=== PATIENT | female | born 2000 | race Caucasian/White ===

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

== ENCOUNTER 2019-04-06 22:59 | Emergency (ER) | payer SELFPAY ==
[~2019-04-06] VITALS: Ht 152.4 cm; Wt 54.9 kg
--- NOTE | 2019-04-06 23:30 | PHYS DOC ---
Past Medical History Past Medical History: Anxiety, Depression Past Surgical History: No Surgical History Alcohol Use: None Drug Use: Marijuana, Methamphetamine Adult General Chief Complaint Chief Complaint: SUBSTANCE ABUSE HPI HPI Patient is a 18 year old female presented ER today for evaluation of abdominal pain, nausea vomiting, and diarrhea started today. Patient says she might be , her last menstrual period was 2 months ago. Patient denies any fever. She denies any vaginal bleeding or any pelvic pain at this time. Patient denies suicidal ideation or homicidal ideation. Review of Systems Review of Systems Constitutional: Denies fever or chills [] Eyes: Denies change in visual acuity, redness, or eye pain [] HENT: Denies nasal congestion or sore throat [] Respiratory: Denies cough or shortness of breath [] Cardiovascular: No additional information not addressed in HPI [] GI: Positive for abdominal pain, nausea, vomiting, NO bloody stools or diarrhea [] : Denies dysuria or hematuria [] Musculoskeletal: Denies back pain or joint pain [] Integument: Denies rash or skin lesions [] Neurologic: Denies headache, focal weakness or sensory changes [] Endocrine: Denies polyuria or polydipsia [] All other systems were reviewed and found to be within normal limits, except as documented in this note. Current Medications Current Medications Current Medications Medications (Trade) Dose Ordered Sig/Haley Start Time Stop Time Status Last Admin Dose Admin Info (CONTRAST GIVEN -- Rx MONITORING) 1 each PRN DAILY PRN 04/07/19 00:15 04/09/19 00:14 Iohexol (Omnipaque 300 Mg/ml) 75 ml 1X ONCE 04/07/19 00:30 04/07/19 00:31 DC 04/07/19 00:45 75 ML Ketorolac Tromethamine (Toradol 30mg Vial) 30 mg 1X ONCE 04/07/19 01:30 04/07/19 01:31 04/07/19 01:23 30 MG Potassium Chloride (Klor-Con) 40 meq 1X ONCE 04/07/19 01:30 04/07/19 01:31 04/07/19 01:24 40 MEQ Sodium Chloride 1,000 ml @ 1,000 mls/hr 1X ONCE 04/07/19 01:30 04/07/19 02:29 04/07/19 01:23 1,000 MLS/HR Allergies Allergies Allergies Coded Allergies Type Severity Reaction Last Updated Verified No Known Drug Allergies 07/20/18 No Physical Exam Physical Exam Constitutional: Well developed, well nourished, no acute distress, non-toxic appearance. [] HENT: Normocephalic, atraumatic, bilateral external ears normal, oropharynx moist, no oral exudates, nose normal. [] Eyes: PERRLA, EOMI, conjunctiva normal, no discharge. [] Neck: Normal range of motion, no tenderness, supple, no stridor. [] Cardiovascular:Heart rate regular rhythm, no murmur [] Lungs & Thorax: Bilateral breath sounds clear to auscultation [] Abdomen: Bowel sounds normal, soft, There is tenderness to palpation in suprapubic area, no rebound, no guarding, no masses, no pulsatile masses. [] Skin: Warm, dry, no erythema, no rash. [] Back: No tenderness, no CVA tenderness. [] Extremities: No tenderness, no cyanosis, no clubbing, ROM intact, no edema. [] Neurologic: Alert and oriented X 3, normal motor function, normal sensory function, no focal deficits noted. [] Psychologic: Affect normal, judgement normal, mood normal. [] Current Patient Data Vital Signs Vital Signs Date Time Temp Pulse Resp B/P (MAP) Pulse Ox O2 Delivery O2 Flow Rate FiO2 04/06/19 23:38 98.3 122 22 121/73 (89) 99 Room Air 98.3 Lab Values Laboratory Tests Test 04/06/19 23:25 04/06/19 23:30 04/06/19 23:37 White Blood Count 10.0 x10^3/uL (4.0-11.0) Red Blood Count 4.53 x10^6/uL (3.50-5.40) Hemoglobin 13.3 g/dL (12.0-15.5) Hematocrit 40.7 % (36.0-47.0) Mean Corpuscular Volume 90 fL (79-100) Mean Corpuscular Hemoglobin 29 pg (25-35) Mean Corpuscular Hemoglobin Concent 33 g/dL (31-37) Red Cell Distribution Width 16.2 % (11.5-14.5) H Platelet Count 218 x10^3/uL (140-400) Neutrophils (%) (Auto) 70 % (31-73) Lymphocytes (%) (Auto) 23 % (24-48) L Monocytes (%) (Auto) 5 % (0-9) Eosinophils (%) (Auto) 2 % (0-3) Basophils (%) (Auto) 1 % (0-3) Neutrophils # (Auto) 7.0 x10^3uL (1.8-7.7) Lymphocytes # (Auto) 2.3 x10^3/uL (1.0-4.8) Monocytes # (Auto) 0.5 x10^3/uL (0.0-1.1) Eosinophils # (Auto) 0.2 x10^3/uL (0.0-0.7) Basophils # (Auto) 0.1 x10^3/uL (0.0-0.2) Prothrombin Time 12.0 SEC (11.7-14.0) Prothrombin Time INR 0.9 (0.8-1.1) PTT 27 SEC (24-38) Sodium Level 143 mmol/L (136-145) Potassium Level 3.2 mmol/L (3.5-5.1) L Chloride Level 103 mmol/L (98-107) Carbon Dioxide Level 24 mmol/L (21-32) Anion Gap 16 (6-14) H Blood Urea Nitrogen 10 mg/dL (7-20) Creatinine 0.8 mg/dL (0.6-1.0) Estimated GFR (Cockcroft-Gault) 92.4 BUN/Creatinine Ratio 13 (6-20) Glucose Level 96 mg/dL (70-99) Calcium Level 8.8 mg/dL (8.5-10.1) Total Bilirubin 0.3 mg/dL (0.2-1.0) Aspartate Amino Transferase (AST) 25 U/L (15-37) Alanine Aminotransferase (ALT) 21 U/L (14-59) Alkaline Phosphatase 75 U/L (46-116) Total Protein 7.7 g/dL (6.4-8.2) Albumin 3.8 g/dL (3.4-5.0) Albumin/Globulin Ratio 1.0 (1.0-1.7) Lipase 79 U/L (73-393) Salicylates Level < 2.8 mg/dL (2.8-20.0) L Salicylate Last Dose Date Salicylate Last Dose Time Acetaminophen Level < 2 mcg/ml (10-30) L Acetaminophen Last Dose Date Acetaminophen Last Dose Time Ethyl Alcohol Level 225 mg/dL (0-10) H Urine Collection Type Void Urine Color Yellow Urine Clarity Cloudy Urine pH 6.5 Urine Specific [place] 1.010 Urine Protein Negative mg/dL (NEG-TRACE) Urine Glucose (UA) Negative mg/dL (NEG) Urine Ketones (Stick) Negative mg/dL (NEG) Urine Blood Negative (NEG) Urine Nitrite Negative (NEG) Urine Bilirubin Negative (NEG) Urine Urobilinogen Dipstick 1.0 mg/dL (0.2 mg/dL) Urine Leukocyte Esterase Negative (NEG) Urine RBC 0 /HPF (0-2) Urine WBC Rare /HPF (0-4) Urine Squamous Epithelial Cells Few /LPF Urine Bacteria 0 /HPF (0-FEW) Urine Opiates Screen Neg (NEG) Urine Methadone Screen Neg (NEG) Urine Barbiturates Neg (NEG) Urine Phencyclidine Screen Neg (NEG) Urine Amphetamine/Methamphetamine Neg (NEG) Urine Benzodiazepines Screen Pos (NEG) Urine Cocaine Screen Neg (NEG) Urine Cannabinoids Screen Pos (NEG) Urine Ethyl Alcohol Pos (NEG) POC Urine HCG, Qualitative Hcg negative (Negative) Laboratory Tests 04/06/19 23:25 Laboratory Tests 04/06/19 23:25 EKG EKG [] Radiology/Procedures Radiology/Procedures [][facility] [address] [place] [address] IMAGING REPORT Signed PATIENT: DURGA CHACKO ACCOUNT: [id number] : 2000 LOCATION: ER AGE: 18 SEX: F EXAM STATUS: PRE ER ORD. PHYSICIAN: BENIGNO PAIZ DO REASON: abdominal pain, nausea and vomiting, OMNI 300, 75ml PROCEDURE: CT ABD PELV W/ IV CONTRST ONLY Examination: CT of the abdomen pelvis with IV contrast HISTORY: History of abdominal pain, nausea, vomiting COMPARISON: None TECHNIQUE: Axial CT images of the abdomen pelvis were performed with IV contrast. Coronal and sagittal reformatted performed Exposure: One or more of the following individualized dose reduction techniques were utilized for this examination: 1. Automated exposure control 2. Adjustment of the mA and/or kV according to patient size 3. Use of iterative reconstruction technique FINDINGS: The bibasilar lungs are clear. No evidence of free air identified in the abdomen. The visualized liver, spleen, adrenals grossly appears unremarkable. The gallbladder is mildly distended. The stomach is mildly distended. The visualized pancreas grossly appears unremarkable. There is mild fat stranding identified about the small bowel is loops. The appendix is normal. Feces and gas identified in the colon. There is mild thickened appearance of the wall of the descending colon with minimal surrounding fat stranding. There is a cystic structure identified in the right adnexa measuring 2.5 cm. The urinary bladder is mildly distended. The bilateral kidneys enhance symmetrically. Punctate intrarenal collecting system calculi identified in the bilateral kidneys with the largest measuring 3 mm in the left kidney. No evidence of lytic bony destructive lesion. IMPRESSION: 1. Mild fat stranding identified in the mesentery about the small bowel loops possibly enteritis. 2. Mild thickened appearance of the wall of the descending colon and sigmoid colon could be nondistention or mild colitis. 3. 2.5 cm cyst or cystic lesion identified in the right ovary. 4. Bilateral nephrolithiasis. Electronically signed by: Aubrey Escoto MD (04/07/2019 1:03 AM) [facility] DICTATED and SIGNED BY: AUBREY ESCOTO MD DATE: 04/07/19 0103 Course & Med Decision Making Course & Med Decision Making Pertinent Labs and Imaging studies reviewed. (See chart for details) [] Dragon Disclaimer Dragon Disclaimer This electronic medical record was generated, in whole or in part, using a voice recognition dictation system. Departure Departure Impression: Primary Impression: Abdominal pain Additional Impression: Alcohol abuse Disposition: 01 HOME, SELF-CARE Condition: STABLE Referrals: NO PCP (PCP) Patient was being discharged from the ER. She will go to [facility] FOR DETOX. Patient Instructions: Abdominal Pain, Alcohol Intoxication, [id number] Scripts Chlordiazepoxide Hcl (CHLORDIAZEPOXIDE HCL) 25 Mg Capsule 50 MG PO QIDPMEDS PRN for ANXIETY / AGITATION, #30 CAP Prov: BENIGNO PAIZ DO 04/07/19 Problem Qualifiers BENIGNO PAIZ DO April 06, 2019 23:30
[2019-04-06 23:38] VITALS: BP 121/73
[2019-04-06 23:41] LABS: BASO # 0.1 x10^3/uL (0.0-0.2); BASO % 1 % (0-3); EOS # 0.2 x10^3/uL (0.0-0.7); EOS % 2 % (0-3); HEMATOCRIT 40.7 % (36.0-47.0); HEMOGLOBIN 13.3 g/dL (12.0-15.5); LYMPH # 2.3 x10^3/uL (1.0-4.8); LYMPH % 23 % (24-48); MEAN CORPUSCULAR HEMOGLOBIN 29 pg (25-35); MEAN CORPUSCULAR HGB CONC 33 g/dL (31-37); MEAN CORPUSCULAR VOLUME 90 fL (79-100); MONO # 0.5 x10^3/uL (0.0-1.1); MONO % 5 % (0-9); NEUT % 70 % (31-73); PLATELET COUNT 218 x10^3/uL (140-400); RED BLOOD COUNT 4.53 x10^6/uL (3.50-5.40); RED CELL DISTRIBUTION WIDTH 16.2 % (11.5-14.5)
[2019-04-06 23:42] LABS: BILIRUBIN,URINE NEGATIVE (NEG); CLARITY,URINE CLOUDY; COLOR,URINE YELLOW; NITRITE,URINE NEGATIVE (NEG); PH,URINE 6.5; PROTEIN,URINE NEGATIVE (NEG-TRACE)
[2019-04-06 23:49] LABS: CALCIUM 8.8 mg/dL (8.5-10.1); CREATININE 0.8 mg/dL (0.6-1.0); GFR 92.4; POTASSIUM 3.2 mmol/L (3.5-5.1)
[2019-04-06 23:50] LABS: BACTERIA,URINE 0 /HPF (0-FEW); RBC,URINE 0 /HPF (0-2); SQUAMOUS EPITHELIAL CELL,UR FEW /LPF; WBC,URINE RARE /HPF (0-4)
[2019-04-06 23:51] LABS: ETHANOL 225 mg/dL (0-10); SALIC < 2.8 mg/dL (2.8-20.0)
[2019-04-06 23:52] LABS: ACETAMIN < 2 mcg/ml (10-30)
[2019-04-06 23:53] LABS: BARBITURATES NEG (NEG); BENZODIAZEPINES POS (NEG); CANNABINOIDS POS (NEG); COCAINE NEG (NEG); METHADONE NEG (NEG); OPIATES NEG (NEG); PHENCYCLIDINE NEG (NEG)
[2019-04-06 23:53] LABS: ALBUMIN 3.8 g/dL (3.4-5.0); TOTAL BILIRUBIN 0.3 mg/dL (0.2-1.0); TOTAL PROTEIN 7.7 g/dL (6.4-8.2)
[2019-04-06 23:54] LABS: AMPHETAMINE/METHAMPHETAMINE NEG (NEG)
[2019-04-07] MEDS ORDERED: CONTRAST GIVEN. MC PRN (00:15)
[2019-04-07] MEDS ORDERED: IOHEXOL 300 MG/ML 100ML VIAL. IV ONE (00:30)
[2019-04-07] MEDS ORDERED: IV NORMAL SALINE 1000ML BAG 1,000 ML IV ONE ×2 (00:30→01:30)
--- NOTE | 2019-04-07 01:06 | RAD ---
Examination: CT of the abdomen pelvis with IV contrast HISTORY: History of abdominal pain, nausea, vomiting COMPARISON: None TECHNIQUE: Axial CT images of the abdomen pelvis were performed with IV contrast. Coronal and sagittal reformatted performed Exposure: One or more of the following individualized dose reduction techniques were utilized for this examination: 1. Automated exposure control 2. Adjustment of the mA and/or kV according to patient size 3. Use of iterative reconstruction technique FINDINGS: The bibasilar lungs are clear. No evidence of free air identified in the abdomen. The visualized liver, spleen, adrenals grossly appears unremarkable. The gallbladder is mildly distended. The stomach is mildly distended. The visualized pancreas grossly appears unremarkable. There is mild fat stranding identified about the small bowel is loops. The appendix is normal. Feces and gas identified in the colon. There is mild thickened appearance of the wall of the descending colon with minimal surrounding fat stranding. There is a cystic structure identified in the right adnexa measuring 2.5 cm. The urinary bladder is mildly distended. The bilateral kidneys enhance symmetrically. Punctate intrarenal collecting system calculi identified in the bilateral kidneys with the largest measuring 3 mm in the left kidney. No evidence of lytic bony destructive lesion. IMPRESSION: 1. Mild fat stranding identified in the mesentery about the small bowel loops possibly enteritis. 2. Mild thickened appearance of the wall of the descending colon and sigmoid colon could be nondistention or mild colitis. 3. 2.5 cm cyst or cystic lesion identified in the right ovary. 4. Bilateral nephrolithiasis. Electronically signed by: Aubrey Escoto MD (04/07/2019 1:03 AM) [id number]
[2019-04-07] MEDS ORDERED: KETOROLAC 30 MG/ML VIAL. IV ONE (01:30)
[2019-04-07] MEDS ORDERED: POTASSIUM CHLORIDE 20 MEQ TABLET.ER. PO ONE (01:30)
[2019-04-07] MEDS ORDERED: CHLO25CA9 PO (01:39)
== END 2019-04-07 02:25 | disposition home or self-care (01) ==
LOC: ER 22:59
DX: R10.30 Lower abdominal pain, unspecified (principal); F10.10 Alcohol abuse, uncomplicated; Y90.7 Blood alcohol level of 200-239 mg/100 ml; R11.2 Nausea with vomiting, unspecified; R19.7 Diarrhea, unspecified; F41.9 Anxiety disorder, unspecified; F32.9 Major depressive disorder, single episode, unspecified
CPT/HCPCS: 36415; 74177; 80053; 80307; 80329; 81001; 81025; 83690; 85025; 85610; 85730; 96361; 96374; 99285; G0480; J1885; J7030; Q9967

== ENCOUNTER 2019-08-27 23:08 | Emergency (ER) | payer SELFPAY ==
[~2019-08-27] VITALS: Ht 152.4 cm; Wt 54.4 kg
[~2019-08-27 23:08] MED LIST: CHLO25CA9 PO
[2019-08-27 23:20] VITALS: BP_DIAS 89
[2019-08-27 23:58] LABS: BILIRUBIN,URINE NEGATIVE (NEG); CLARITY,URINE CLEAR; COLOR,URINE YELLOW; NITRITE,URINE NEGATIVE (NEG); PROTEIN,URINE NEGATIVE (NEG-TRACE)
[2019-08-28 00:02] LABS: BASO # 0.1 x10^3/uL (0.0-0.2); BASO % 1 % (0-3); EOS # 0.1 x10^3/uL (0.0-0.7); EOS % 1 % (0-3); HEMATOCRIT 39.3 % (36.0-47.0); HEMOGLOBIN 12.9 g/dL (12.0-15.5); LYMPH # 2.9 x10^3/uL (1.0-4.8); LYMPH % 32 % (24-48); MEAN CORPUSCULAR HEMOGLOBIN 29 pg (25-35); MEAN CORPUSCULAR HGB CONC 33 g/dL (31-37); MEAN CORPUSCULAR VOLUME 87 fL (79-100); MONO # 0.7 x10^3/uL (0.0-1.1); MONO % 7 % (0-9); NEUT # 5.2 x10^3/uL (1.8-7.7); NEUT % 58 % (31-73); PLATELET COUNT 295 x10^3/uL (140-400); RED BLOOD COUNT 4.51 x10^6/uL (3.50-5.40); RED CELL DISTRIBUTION WIDTH 16.4 % (11.5-14.5)
[2019-08-28 00:05] LABS: BARBITURATES NEG (NEG); BENZODIAZEPINES NEG (NEG); CANNABINOIDS POS (NEG); COCAINE NEG (NEG); METHADONE NEG (NEG); OPIATES NEG (NEG); PHENCYCLIDINE POS (NEG)
[2019-08-28 00:06] LABS: AMPHETAMINE/METHAMPHETAMINE POS (NEG)
[2019-08-28 00:11] LABS: CALCIUM 9.3 mg/dL (8.5-10.1); GFR 71.4; POTASSIUM 3.8 mmol/L (3.5-5.1)
--- NOTE | 2019-08-28 00:12 | PHYS DOC ---
Past Medical History Past Medical History: No Pertinent History Past Surgical History: No Surgical History Additional Past Surgical Histo: RT EAR Alcohol Use: Occasionally Drug Use: Other Social History Narrative: pcp at 2255 Adult General Chief Complaint Chief Complaint: VAGINAL BLEEDING HPI HPI Patient is a 18 year old female who presents to the ED today complaining of h eavy vaginal bleeding that began 3 days ago. Patient states she has used 3 feminine tampons in the last 24 hours. She states she is homeless and would like to go to detox. She states she uses alcohol and and PCP. She states she last took PCP as well as 6 shots of vodka and 3 beers a couple hours before coming to the ED. She states the bleeding is concerning to her because this is the second or third time in this month that she has had vaginal bleeding. Denies any chance she is . Review of Systems Review of Systems Constitutional: Denies fever or chills [] Eyes: Denies change in visual acuity, redness, or eye pain [] HENT: Denies nasal congestion or sore throat [] Respiratory: Denies cough or shortness of breath [] Cardiovascular: No additional information not addressed in HPI [] GI: Reports vaginal bleeding and abdominal pain, denies nausea, vomiting, bloody stools or diarrhea [] : Denies dysuria or hematuria [] Musculoskeletal: Denies back pain or joint pain [] Integument: Denies rash or skin lesions [] Neurologic: Denies headache, focal weakness or sensory changes [] Endocrine: Reports PCP use, reports alcohol use All other systems were reviewed and found to be within normal limits, except as documented in this note. Current Medications Current Medications Current Medications Medications (Trade) Dose Ordered Sig/Haley Start Time Stop Time Status Last Admin Dose Admin Multivitamins 10 ml/Thiamine HCl 100 mg/Folic Acid 1 mg/Sodium Chloride 1,011.2 ml @ 1,000.088 mls/hr 1X ONCE 08/28/19 00:30 08/28/19 01:30 08/28/19 00:02 1,000.088 MLS/HR Allergies Allergies Allergies Coded Allergies Type Severity Reaction Last Updated Verified No Known Drug Allergies 07/20/18 No Physical Exam Physical Exam Constitutional: Well developed, well nourished, no acute distress, non-toxic appearance. [] HENT: Normocephalic, atraumatic, bilateral external ears normal, oropharynx moist, no oral exudates, nose normal. [] Eyes: PERRLA, EOMI, conjunctiva normal, no discharge. [] Neck: Normal range of motion, no tenderness, supple, no stridor. [] Cardiovascular:Heart rate regular rhythm, no murmur [] Lungs & Thorax: Bilateral breath sounds clear to auscultation [] Abdomen: Bowel sounds normal, soft, no tenderness, no masses, no pulsatile masses. [] External vagina appears normal, cervix is visualized closed, no CMT, no adnexal tenderness, trace amount of bright red blood in the vaginal vault. Skin: Warm, dry, no erythema, no rash. [] Back: No tenderness, no CVA tenderness. [] Extremities: No tenderness, no cyanosis, no clubbing, ROM intact, no edema. [] Neurologic: Alert and oriented X 3, normal motor function, normal sensory function, no focal deficits noted. [] Psychologic: Appears intoxicated Current Patient Data Vital Signs Vital Signs Date Time Temp Pulse Resp B/P (MAP) Pulse Ox O2 Delivery O2 Flow Rate FiO2 08/27/19 23:20 98.7 153 18 141/89 (106) 96 Room Air 98.7 Lab Values Laboratory Tests Test 08/27/19 23:30 08/27/19 23:43 08/27/19 23:50 Urine Collection Type Unknown Urine Color Yellow Urine Clarity Clear Urine pH 6.0 Urine Specific [place] >=1.030 Urine Protein Negative mg/dL (NEG-TRACE) Urine Glucose (UA) Negative mg/dL (NEG) Urine Ketones (Stick) Negative mg/dL (NEG) Urine Blood Large (NEG) Urine Nitrite Negative (NEG) Urine Bilirubin Negative (NEG) Urine Urobilinogen Dipstick 1.0 mg/dL (0.2 mg/dL) Urine Leukocyte Esterase Negative (NEG) Urine RBC 20-40 /HPF (0-2) Urine WBC 5-10 /HPF (0-4) Urine Squamous Epithelial Cells Mod /LPF Urine Bacteria Few /HPF (0-FEW) Urine Mucus Marked /LPF Urine Opiates Screen Neg (NEG) Urine Methadone Screen Neg (NEG) Urine Barbiturates Neg (NEG) Urine Phencyclidine Screen Pos (NEG) Urine Amphetamine/Methamphetamine Pos (NEG) Urine Benzodiazepines Screen Neg (NEG) Urine Cocaine Screen Neg (NEG) Urine Cannabinoids Screen Pos (NEG) Urine Ethyl Alcohol Pos (NEG) POC Urine HCG, Qualitative Hcg negative (Negative) White Blood Count 9.0 x10^3/uL (4.0-11.0) Red Blood Count 4.51 x10^6/uL (3.50-5.40) Hemoglobin 12.9 g/dL (12.0-15.5) Hematocrit 39.3 % (36.0-47.0) Mean Corpuscular Volume 87 fL (79-100) Mean Corpuscular Hemoglobin 29 pg (25-35) Mean Corpuscular Hemoglobin Concent 33 g/dL (31-37) Red Cell Distribution Width 16.4 % (11.5-14.5) H Platelet Count 295 x10^3/uL (140-400) Neutrophils (%) (Auto) 58 % (31-73) Lymphocytes (%) (Auto) 32 % (24-48) Monocytes (%) (Auto) 7 % (0-9) Eosinophils (%) (Auto) 1 % (0-3) Basophils (%) (Auto) 1 % (0-3) Neutrophils # (Auto) 5.2 x10^3/uL (1.8-7.7) Lymphocytes # (Auto) 2.9 x10^3/uL (1.0-4.8) Monocytes # (Auto) 0.7 x10^3/uL (0.0-1.1) Eosinophils # (Auto) 0.1 x10^3/uL (0.0-0.7) Basophils # (Auto) 0.1 x10^3/uL (0.0-0.2) Sodium Level 146 mmol/L (136-145) H Potassium Level 3.8 mmol/L (3.5-5.1) Chloride Level 108 mmol/L (98-107) H Carbon Dioxide Level 23 mmol/L (21-32) Anion Gap 15 (6-14) H Blood Urea Nitrogen 19 mg/dL (7-20) Creatinine 1.0 mg/dL (0.6-1.0) Estimated GFR (Cockcroft-Gault) 71.4 BUN/Creatinine Ratio 19 (6-20) Glucose Level 102 mg/dL (70-99) H Calcium Level 9.3 mg/dL (8.5-10.1) Total Bilirubin 0.2 mg/dL (0.2-1.0) Aspartate Amino Transferase (AST) 28 U/L (15-37) Alanine Aminotransferase (ALT) 23 U/L (14-59) Alkaline Phosphatase 75 U/L (46-116) Total Protein 7.6 g/dL (6.4-8.2) Albumin 4.0 g/dL (3.4-5.0) Albumin/Globulin Ratio 1.1 (1.0-1.7) Lipase 104 U/L (73-393) Salicylates Level < 2.8 mg/dL (2.8-20.0) L Salicylate Last Dose Date Salicylate Last Dose Time Acetaminophen Level < 2 mcg/ml (10-30) L Acetaminophen Last Dose Date Acetaminophen Last Dose Time Ethyl Alcohol Level 156 mg/dL (0-10) H Laboratory Tests 08/27/19 23:50 Laboratory Tests 08/27/19 23:50 Microbiology 08/27/19 Wet Prep - Final, Complete EKG EKG [] Radiology/Procedures Radiology/Procedures [] Course & Med Decision Making Course & Med Decision Making Pertinent Labs and Imaging studies reviewed. (See chart for details) This is a 18-year-old female patient presenting to the ED today with what she considers as heavy vaginal bleeding that began 3 days ago. She has used 3 feminine tampons today. She also states she bled 2 weeks ago. Patient is also requesting to go to detox, she states she is homeless and has been drinking heav johnna, she had 6 shots of vodka and 3 beers prior to coming to the ED. Patient is also requesting STD treatment which was provided in the ED. CBC with no acute findings, CMP with no acute findings, lipase is normal, drug screen noted for alcoholism, alcohol level 156, also noted for PCP, marijuana, methamphetamines. Parts team states he came to talk to patient, she declined any help with alcohol as well as drug use. She was discharged to home. Dragon Disclaimer Dragon Disclaimer This electronic medical record was generated, in whole or in part, using a voice recognition dictation system. Departure Departure Impression: Primary Impression: Dysfunctional uterine bleeding Additional Impressions: Alcohol abuse Drug abuse Disposition: HOME, SELF-CARE Condition: STABLE Referrals: NO PCP (PCP) CARLITA TORRES Jr, MD follow up for vaginal bleeding Patient Instructions: Alcohol Problems, Drug Abuse, FAQs, Uterine Bleeding, Dysfunctional, [id number] Additional Instructions: You were evaluated in the emergency room for dysfunctional uterine bleeding. Follow-up with an DIRECTOR [employer] for this. You also noted to have alcohol and drugs on board. Consider getting help through [facility]. Problem Qualifiers GERMAN BORREGO APRN Aug 28, 2019 00:12
[2019-08-28 00:13] LABS: BACTERIA,URINE FEW /HPF (0-FEW); RBC,URINE 20-40 /HPF (0-2)
[2019-08-28 00:14] LABS: SQUAMOUS EPITHELIAL CELL,UR MOD /LPF
[2019-08-28 00:17] LABS: ACETAMIN < 2 mcg/ml (10-30); ETHANOL 156 mg/dL (0-10); SALIC < 2.8 mg/dL (2.8-20.0)
[2019-08-28 00:18] LABS: ALBUMIN/GLOBULIN RATIO 1.1 (1.0-1.7); TOTAL BILIRUBIN 0.2 mg/dL (0.2-1.0); TOTAL PROTEIN 7.6 g/dL (6.4-8.2)
[2019-08-28] MEDS ORDERED: MULTIVIT INFUSN,ADULT 4,VIT K 10 ML, THIAMINE INJ 100 MG, FOLIC ACID INJ 1 MG in IV NOR... IV ONE (00:30)
[2019-08-28] MEDS ORDERED: cefTRIAXone IV Push 1 GM VIAL. IVP ONE (01:15)
[2019-08-28] MEDS ORDERED: AZITHROMYCIN 250 MG TABLET. PO ONE (01:15)
[2019-08-28 01:16] VITALS: BP_SYST 130
--- NOTE | 2019-08-28 01:28 | RAD ---
EXAM: Pelvic ultrasound HISTORY: Abnormal vaginal bleeding. COMPARISON: None. FINDINGS: Sonographic evaluation of the pelvis was performed transabdominally and transvaginally. The uterus is anteverted and measures 7.1 x 3.3 x 2.7 cm. The endometrial stripe measures 3 mm. No masses are identified. There is no significant free fluid. The right ovary measures 2.2 x 1.2 x 1.1 cm. The left ovary measures 3.2 x 2.3 x 1.8 cm. A dominant left ovarian follicle measures 1.8 cm. There is normal Doppler flow bilaterally. There are no suspicious lesions. IMPRESSION: 1. Unremarkable examination of the pelvis. Normal endometrial thickness. Electronically signed by: Jignesh Robles MD (08/28/2019 1:25 AM) [facility]
[2019-08-29 19:10] LABS: GC PROBE Negative (Negative)
== END 2019-08-28 01:24 | disposition home or self-care (01) ==
LOC: ER 23:08
DX: N93.8 Other specified abnormal uterine and vaginal bleeding (principal); F10.10 Alcohol abuse, uncomplicated; F16.10 Hallucinogen abuse, uncomplicated; Z59.0 Homelessness; Y90.6 Blood alcohol level of 120-199 mg/100 ml
CPT/HCPCS: 36415; 76830; 80053; 80307; 80329; 81001; 81025; 83690; 85025; 87491; 87591; 96365; 96375; 99285; G0480; J0696; J7030; Q0111; Q0144

== ENCOUNTER 2022-01-11 01:51 | Emergency (ER) | payer SELFPAY ==
[~2022-01-11] VITALS: Ht 152.4 cm; Wt 59.0 kg
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
[2022-01-11 02:15] LABS: BILIRUBIN,URINE NEGATIVE (NEG); CLARITY,URINE CLEAR; COLOR,URINE YELLOW; NITRITE,URINE NEGATIVE (NEG); PROTEIN,URINE NEGATIVE (NEG-TRACE); UROBILINOGEN,URINE 0.2 mg/dL (0.2 mg/dL)
[2022-01-11 02:19] LABS: BACTERIA,URINE FEW /HPF (0-FEW); RBC,URINE 0 /HPF (0-2); U PREG PATIENT NEGATIVE (NEG)
[2022-01-11 02:27] LABS: BASO # 0.1 x10^3/uL (0.0-0.2); BASO % 1 % (0-3); EOS # 0.3 x10^3/uL (0.0-0.7); EOS % 4 % (0-3); HEMOGLOBIN 12.7 g/dL (12.0-15.5); LYMPH # 3.4 x10^3/uL (1.0-4.8); LYMPH % 43 % (24-48); MEAN CORPUSCULAR HEMOGLOBIN 31 pg (25-35); MEAN CORPUSCULAR HGB CONC 33 g/dL (31-37); MEAN CORPUSCULAR VOLUME 95 fL (79-100); MONO # 0.4 x10^3/uL (0.0-1.1); MONO % 6 % (0-9); NEUT # 3.7 x10^3/uL (1.8-7.7); NEUT % 47 % (31-73); PLATELET COUNT 245 x10^3/uL (140-400); RED CELL DISTRIBUTION WIDTH 15.6 % (11.5-14.5); WHITE BLOOD COUNT 7.8 x10^3/uL (4.0-11.0)
[2022-01-11 02:32] LABS: AMPHETAMINE/METHAMPHETAMINE NEG (NEG); BARBITURATES NEG (NEG); BENZODIAZEPINES NEG (NEG); CANNABINOIDS POS (NEG); COCAINE NEG (NEG); METHADONE NEG (NEG); OPIATES NEG (NEG); PHENCYCLIDINE NEG (NEG)
[2022-01-11 02:38] LABS: CALCIUM 8.6 mg/dL (8.5-10.1); CREATININE 0.5 mg/dL (0.6-1.0); GFR 154.3; POTASSIUM 3.6 mmol/L (3.5-5.1)
[2022-01-11 02:43] LABS: ALBUMIN 3.7 g/dL (3.4-5.0); ALBUMIN/GLOBULIN RATIO 0.9 (1.0-1.7); MAGNESIUM 2.1 mg/dL (1.8-2.4); PHOSPHORUS 3.2 mg/dL (2.6-4.7); TOTAL BILIRUBIN 0.2 mg/dL (0.2-1.0); TOTAL PROTEIN 7.6 g/dL (6.4-8.2)
[2022-01-11 02:55] LABS: ACETAMIN < 2 mcg/ml (10-30); ETHANOL 228 mg/dL (0-10); SALIC 2.3 mg/dL (2.8-20.0)
[2022-01-11] MEDS ORDERED: AZITHROMYCIN 250 MG TABLET. PO ONE (03:30)
[2022-01-11] MEDS ORDERED: MULTIVIT INFUSN,ADULT 4,VIT K 10 ML, THIAMINE INJ 100 MG, FOLIC ACID INJ 1 MG in IV NOR... IV ONE (03:30)
[2022-01-11] MEDS ORDERED: cefTRIAXone IM 500 MG VIAL. IM ONE (03:30)
[2022-01-11] MEDS ORDERED: ONDANSETRON PF 4 MG/2 ML VIAL. IVP ONE (04:15)
[2022-01-11 05:07] VITALS: BP 112/66
[2022-01-11] MEDS ORDERED: ONDA-84 PO (05:24)
[2022-01-11] MEDS ORDERED: METR70GE14 VG (05:24)
[2022-01-12 22:09] LABS: GC PROBE Negative (Negative)
== END 2022-01-11 07:18 | disposition home or self-care (01) ==
LOC: ER 01:51
DX: F10.129 Alcohol abuse with intoxication, unspecified (principal); Y90.8 Blood alcohol level of 240 mg/100 ml or more; N76.0 Acute vaginitis; B96.89 Other specified bacterial agents as the cause of diseases classified elsewhere; F17.200 Nicotine dependence, unspecified, uncomplicated
CPT/HCPCS: 80053; 80307; 80329; 81001; 81025; 82550; 83690; 83735; 84100; 85025; 87086; 87426; 87491; 87591; 96365; 96372; 96375; 99285; G0480; J0696; J2060; J2405; J3411; J3490; J7030; Q0111